=== PATIENT | female | born 1960 | race Caucasian/White ===

== ENCOUNTER 2020-05-10 06:30 | Day surgery (SDC) | payer OTHER ==
[~2020-05-10] VITALS: Ht 157.5 cm; Wt 80.5 kg
[2020-05-10] MEDS ORDERED: LISINOPRIL40 MG PO (06:54)
[2020-05-10] MEDS ORDERED: SYNTHROID75 MCG PO (06:55)
[2020-05-10] MEDS ORDERED: HYDROCHLOROTH12.5 MG PO (06:55)
--- NOTE | 2020-05-10 08:18 | NUR ---
05/10/20 0818 Susan,Hanh 0813 PT ARRIVED TO PACU ON 2L VIA NC, PT WAKES EASILY AND DENIES CONCERNS, PT ENCOURAGED TO PASS GAS. VSS.
--- NOTE | 2020-05-12 13:31 | OR ---
[facility] [address], [place] [address] Signed DATE OF OPERATION: 05/10/2020 SURGEON: Angeline Chan MD PREOPERATIVE DIAGNOSES: 1. History of small polyp 2015 (colonoscopy in [place]). 2. Family history of colon cancer (father). POSTOPERATIVE DIAGNOSES: Normal colon except for possible small hyperplastic polyp of splenic flexure. PROCEDURE: Total colonoscopy to cecum with cold morcellation polypectomy x1. ANESTHESIA: Intravenous sedation, fentanyl 100 mcg, Versed 6 mg. INDICATION: This 59-year-old white woman is a patient of Dr. Rico, previously Dr. Clarke. She underwent colonoscopy in [place] in 2014 at which point she was found to have a small polyp of the left colon. She is symptom-free at this time. She does have family history of colon cancer in a father who of the disease. She is symptom free currently, but is here for surveillance colonoscopy. She understand the risks of bleeding, infection, and perforation. FINDINGS: The prep was excellent. Complete colonoscopy was undertaken of the cecum. There was no evidence of diverticulosis or colitis. There was possibly a small hyperplastic polyp of the splenic flexure, which was excised with cold morcellation technique. The remaining colon and rectum were normal. DESCRIPTION OF PROCEDURE: The patient was brought to the endoscopy suite and placed in lateral decubitus position, given intravenous sedation to the point of slurred speech and nystagmus. Digital rectal examination was normal. The Olympus video colonoscope was passed in the rectum and manipulated throughout the colon ultimately intubating the cecum. The scope was withdrawn from that point and examination throughout showed no sign of abnormality until approximately the splenic flexure where the small hyperplastic-appearing polyp was noted. Narrow band imaging Electronically Signed By: ANGELINE CHAN MD 05/12/20 1331 PATIENT NAME: TRACE SERVIN OPERATIVE REPORT DATE OF : 60 REPORT #: [id number] PHYSICIAN: ANGELINE CHAN MD PCP: CHANDRA RICO MD REPORT IS CONFIDENTIAL AND NOT TO BE RELEASED WITHOUT AUTHORIZATION [facility] [address], [place] [address] Signed confirmed this possibility. The lesion was excised with cold morcellation technique. The scope was further withdrawn and remaining colon was normal including retroflexed view of the rectum. The scope was removed and the patient was taken to the recovery room in good condition. CONCLUDING DIAGNOSIS: Hyperplastic polyp of left colon, splenic flexure. PLAN: Recommend a repeat colonoscopy in 5 years based on family history of colon cancer in her father, sooner if necessary. She will return to the ongoing care of Dr. Rico and Dr. Clarke at [facility]. MD ALTAGRACIA Lai/MODL /[id number] cc: Dr. Rico Copies: ~ Electronically Signed By: ANGELINE CHAN MD 05/12/20 1331 PATIENT NAME: TRACE SERVIN OPERATIVE REPORT DATE OF : 60 REPORT #: [id number] PHYSICIAN: ANGELINE CHAN MD PCP: CHANDRA RICO MD REPORT IS CONFIDENTIAL AND NOT TO BE RELEASED WITHOUT AUTHORIZATION
--- NOTE | 2020-05-12 19:48 | PATH ---
[facility] [address] [place], [place] [address] Signed SPECIMEN(S): A SPLENIC FLEXURE POLYP SPECIMEN SOURCE: A. SPLENIC FLEXURE POLYP CLINICAL HISTORY: History colon polyp 2014. Post op: Possible hyperplastic polyp. MICROSCOPIC DESCRIPTION: Histologic sections of all submitted blocks are examined by light microscopy. These findings, together with the gross examination, support the pathologic diagnosis. FINAL PATHOLOGIC DIAGNOSIS: Colon, splenic flexure, polyp, polypectomy: - Colonic mucosa with benign mucosal lymphoid aggregates. - Negative for dysplasia or malignancy. NAL:vlg:C2NR GROSS DESCRIPTION: The specimen, labeled "BiankaLisandra, #1," and designated on the requisition "splenic flexure polyp," is received in formalin and consists of one ngo soft tissue fragment that measures 0.4 cm in greatest dimension. The specimen is entirely submitted in cassette (A1). FB (under the direct supervision of a pathologist) The Gross Description was prepared using a voice recognition system. The report was reviewed for accuracy; however, sound-alike word errors, addition and/or deletions may occur. If there is any question about this report, please contact Client Services. PERFORMING LABORATORY: The technical component was performed by [facility], [address] [place] [id number] (Wire Temperer: Sara Kang MD; CLIA# [id number]). [facility], [address] [address] (CLIA# [id number]). Diagnostician: Ernestine Steve MD Pathologist Electronically Signed 05/12/2020 PATIENT NAME: TRACE SERVIN PATHOLOGY DATE OF : 60 REPORT #: [id number] PHYSICIAN: [facility] PCP: CHANDRA RICO MD REPORT IS CONFIDENTIAL AND NOT TO BE RELEASED WITHOUT AUTHORIZATION [address] [address] Signed Copies: ~ PATIENT NAME: TRACE SERVIN PATHOLOGY DATE OF : 60 REPORT #: [id number] PHYSICIAN: [facility] PATHOLOG[facility] PCP: CHANDRA RICO MD REPORT IS CONFIDENTIAL AND NOT TO BE RELEASED WITHOUT AUTHORIZATION
== END 2020-05-10 09:51 | disposition home or self-care (01) ==
LOC: OPS 06:30 → DS 06:30 → OPS 06:45
PROVIDERS: ATTEND Surgery
PROC: 0DBL8ZX Excision of Transverse Colon, Via Natural or Artificial Opening Endoscopic, Diagnostic (ICD-10-PCS; principal; 2020-05-10 06:45)
DX: Z12.11 Encounter for screening for malignant neoplasm of colon (principal); K63.5 Polyp of colon; I10 Essential (primary) hypertension; E03.9 Hypothyroidism, unspecified; H61.302 Acquired stenosis of left external ear canal, unspecified; Z80.0 Family history of malignant neoplasm of digestive organs; Z86.010 Personal history of colon polyps; Z79.890 Hormone replacement therapy; Z79.899 Other long term (current) drug therapy
CPT/HCPCS: 99153; G0500; J2250; J3010; J7121